=== PATIENT | male | born 1980 | race Caucasian/White ===

== ENCOUNTER 2024-05-05 16:51 | Emergency (ER) | payer SELFPAY ==
[2024-05-05 16:59] VITALS: BP 153/101; PULSE 104; RESP 16; TEMP 36.7; O2SAT 97; BMI 34.8
--- NOTE | 2024-05-05 17:16 | CTR_ITS ---
PROCEDURE INFORMATION: Exam: CT Cervical Spine Without Contrast Exam date and time: 05/05/2024 5:28 PM Age: 43 years old Clinical indication: Injury or trauma; Fall; Blunt trauma; Prior surgery; Surgery date: 6+ months; Surgery type: C-spine; Patient HX: PT states he fell about 6ft off a ladder onto grass. C/O posterior neck pain and back pain, left arm feeling numb down to his fingers. Abrasion to left side of forehead. States he had neck surgery about 6-8 months ago TECHNIQUE: Imaging protocol: Computed tomography of the cervical spine without contrast. Radiation optimization: All CT scans at this facility use at least one of these dose optimization techniques: automated exposure control; mA and/or kV adjustment per patient size (includes targeted exams where dose is matched to clinical indication); or iterative reconstruction. COMPARISON: No relevant prior studies available. RADIATION DOSE METRICS: Total DLP (mGy-cm): 284.67 FINDINGS: Bones/joints: There are degenerative changes throughout the visualized spine including marginal osteophyte formations, endplate degenerative changes, and facet arthropathy. Multilevel disc space narrowing. Status post C5-C6 and C6-C7 anterior cervical discectomy and fusion. There is an anterior plate and screw fixation device in place with minimal resultant artifact. C2-C3: No significant disc bulge or herniation. No severe spinal canal stenosis. No significant neural foraminal narrowing. C3-C4: No significant disc bulge or herniation. No severe spinal canal stenosis. No significant neural foraminal narrowing. C4-C5: There is a broad-based disc osteophyte complex indenting the anterior thecal sac. There is mild narrowing of the left neural foramen. C5-C6: Postoperative level. Posterior uncovertebral osteophytes and facet degenerative change contribute to moderate narrowing of the left neural foramen. C6-C7: Postoperative level. There are posterior uncovertebral osteophyte formations and facet degenerative changes contributing to mild narrowing of the bilateral neural foramina. C7-T1: No significant disc bulge or herniation. No severe spinal canal stenosis. No significant neural foraminal narrowing. Lungs: Lung apices are normal. Soft tissues: There are benign-appearing soft tissue calcifications. CT/CT cervical spin wo con* [id number] IMPRESSION: 1. There are degenerative and postoperative changes in the cervical spine as described above. No evidence for acute fracture. 2. Posterior uncovertebral osteophytes and facet degenerative changes contribute to moderate narrowing of the left neural foramen at the C5-C6 level.
--- NOTE | 2024-05-05 17:18 | ED_ITS ---
HPI - Fall General: Chief Complaint: Fall Stated Complaint: Fell off a ladder hit head Time Seen by Provider: 05/05/24 17:06 History of Present Illness: Patient comes in with neck pain and shoulder pain. States that he fell off a ladder about 6 feet high landing on the grass. States he hit the side of his head on the front. States he had neck surgery about 8 months ago and is now having pain in his left trapezius/left side of his neck. States he also has some numbness and tingling going down his left arm. Review of Systems General: Reports: 10 or more systems reviewed and unremarkable except in HPI and below Physical Exam Const: COMMON NORMALS: no acute distress, patient oriented x3, healthy appearing and alert HENMT: COMMON NORMALS: normocephalic HEAD & SCALP: normocephalic OTHER: Small superficial abrasion to left forehead Eye: COMMON NORMALS: Equal, round and reactive pupils present and EOMs intact bilaterally PUPIL: Yes Equal, round and reactive pupils present Neck/C-Spine: OTHER: And consistent tenderness to palpation of the left side of his neck including the left trapezius Resp: COMMON NORMALS: normal respiratory effort Extremity: COMMON NORMALS: normal to inspection and full ROM Neuro: COMMON NORMALS: patient oriented x3 SENSORIUM/ORIENTATION: Yes alert Psych: COMMON NORMALS: mental status grossly normal and cooperative Course Vital Signs: Vital signs: Vital Signs Temperature 98.0 F 05/05/24 16:59 Pulse Rate 104 H 05/05/24 16:59 Respiratory Rate 16 05/05/24 16:59 Blood Pressure 153/101 05/05/24 16:59 Pulse Oximetry 97 05/05/24 16:59 Oxygen Delivery Me thod Room Air 05/05/24 16:59 MDM - Fall Medical Decision Making Patient comes in with neck pain and shoulder pain. States that he fell off a ladder about 6 feet high landing on the grass. States he hit the side of his head on the front. States he had neck surgery about 8 months ago and is now having pain in his left trapezius/left side of his neck. States he also has some numbness and tingling going down his left arm. On physical exam he has inconsistent tenderness to palpation of his left trapezius. Strength is 5 out of 5 in bilateral extremities. Patient states he is from out of town. He is asking for something for pain, and states he is allergic to Toradol. Will check CT cervical spine, treat pain with p.o. naproxen 500 mg, 40 mg of p.o. prednisone, and 5 mg of p.o. Valium, and reassess. On reassessment talk to the patient about the test results. His CT is concerning for foraminal narrowing with nerve irritation/impingement. The patient states he does have a spine surgeon back home. States he is leaving for home in 2 days. I encouraged him to follow-up with a spine surgeon when he gets home. He is asking for pain medication. Will give him a dose of hydrocodone 5 mg p.o. here. Will continue steroids and naproxen at home. Will discharge at this time with precautions to return for worsening or changing symptoms. Lab Data Radiology Impressions Cervical Spine CT 05/05/24 17:16 IMPRESSION: 1. There are degenerative and postoperative changes in the cervical spine as described above. No evidence for acute fracture. 2. Posterior uncovertebral osteophytes and facet degenerative changes contribute to moderate narrowing of the left neural foramen at the C5-C6 level. All radiology interpretation(s) finalized by discharge Discharge Plan Discharge Patient Disposition: Home Clinical Impression: Neck pain Condition: Stable Prescriptions: New prednisone 20 mg tablet 40 mg PO DAILY 4 Days Qty: 8 0RF naproxen 500 mg tablet 500 mg PO BID Qty: 10 0RF Discharge Orders: Discharge ED (Routine); Ordered 05/05/24 Ordered By: Jose Khan Patient Instructions: Pain Management Coding Level of Care Code ED Press Department Manager for Karissa Fam
[2024-05-05] MEDS: diazePAM 5 mg Tablet PO (17:47)
[2024-05-05] MEDS: naproxen 500 mg Tablet PO (17:47)
[2024-05-05] MEDS: predniSONE 20 mg Tablet 40 MG PO (17:48)
[2024-05-05] MEDS: HYDROcodone-acetaminophen 5-325 mg Tablet 1 TAB PO (18:58)
[2024-05-05 19:00] VITALS: BP 138/77
== END 2024-05-05 19:01 | disposition home or self-care (01) ==
PROVIDERS: Emergency Provider Emergency Medicine
DX: M54.2 Cervicalgia (principal)
CPT/HCPCS: 72125; 99284; J7512